=== PATIENT | male | born 1995 | race Two or more races ===

== ENCOUNTER 2023-05-14 10:49 | Emergency (ER) | payer MEDICAID ==
[~2023-05-14] VITALS: Ht 172.7 cm; Wt 73.0 kg
[2023-05-14 11:13] LABS: Basophils # (auto) 0 10 ^3/uL (0-0.2); Basophils % (auto) 0.6 % (0.0-2.0); Eosinophils # (auto) 0.2 10 ^3/uL (0-0.8); Hemoglobin 18.3 g/dL (13.5-17.5); Mean Corpuscular Hgb Conc. 34.5 g/dL (32.0-36.0); Monocytes # (auto) 0.5 10 ^3/uL (0-1.3); Neutrophils # (auto) 4.8 10 ^3/uL (1.6-8.6)
[2023-05-14 11:15] LABS: Eosinophils % (auto) 2.1 % (0.0-7.0); Hematocrit 52.9 % (41.0-53.0); Lymphocytes # (auto) 1.8 10 ^3/uL (0.4-5.4); Lymphocytes % (auto) 24.3 % (10.0-50.0); Mean Corpuscular Hemoglobin 28.9 pg (28.0-32.0); Mean Corpuscular Volume 83.7 fL (80.0-100.0); Monocytes % (auto) 7.3 % (0.0-12.0); Neutrophils % (auto) 65.7 % (37.0-80.0); Nucleated Red Blood Cells % 0.3 %; Red Blood Cells 6.32 10^6/uL (4.5-5.90); Red Cell Distribution Width 12.9 % (11.8-14.3); White Blood Cell 7.3 10^3/uL (4.4-10.8)
[2023-05-14 11:21] LABS: Urine Bacteria NONE SEEN /hpf (None Seen); Urine Blood Negative /uL (Negative); Urine Clarity Clear (Clear); Urine Protein, UAD Negative (Negative); Urine Specific Gravity 1.006 (1.001-1.035); Urine Urobilinogen Normal (Negative); Urine WBC <1 /hpf (0 - 3); Urine pH 5.5 (5.0-8.0)
[2023-05-14 11:23] LABS: Urine Color Yellow (Yellow)
[2023-05-14 11:29] LABS: Alanine Aminotransferase 21 U/L (7-40); Alkaline Phosphatase 94 U/L (46-116); Anion Gap 6 (5-15); Aspartate Aminotransferase 23 U/L (13-40); BUN/Creatinine Ratio 13.2 (10.0-20.0); Blood Urea Nitrogen 14 mg/dL (9-23); Calcium 9.7 mg/dL (8.5-10.1); Carbon Dioxide 29 mmol/L (20-30); Chloride 102 mmol/L (98-107); Glucose 85 mg/dL (74-106); Potassium 3.9 mmol/L (3.5-5.1); Sodium 137 mmol/L (136-145)
[2023-05-14 11:30] LABS: Total Protein 7.9 g/dL (5.7-8.2)
[2023-05-14] MEDS ORDERED: ALPR0.5T PO (14:30)
[2023-05-14] MEDS: ACETAMINOPHEN 325 MG TAB PO ONE (14:49)
[2023-05-14] MEDS: ONDANSETRON ODT 4 MG TAB PO ONE (14:49)
[2023-05-14 14:57] VITALS: BP 140/74; PULSE 79; RESP 16; TEMP 98.2; O2SAT 99
== END 2023-05-14 14:59 | disposition home or self-care (01) ==
LOC: ER 10:49 → EDBD 10:49 → ER 14:59
DX: F41.8 Other specified anxiety disorders (principal); R07.89 Other chest pain
CPT/HCPCS: 36415; 80053; 81001; 84484; 85025; 93005; 99284; Q0162